=== PATIENT | female | born 1980 | race Caucasian/White ===

== ENCOUNTER 2019-03-23 22:02 | Emergency (ER) | payer OTHER ==
[2019-03-23 22:09] VITALS: BP 133/82; PULSE 99; TEMP 98.6; BMI 25.6
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
[2019-03-23] MEDS ORDERED: AMOX TR/POT CLAV 875MG/125MG TABLETS (FP) PO ONE (22:14)
[2019-03-23] MEDS ORDERED: AMOX TR/POT CLAV 875MG/125MG TABLETS (FP) ONE (22:18)
== END 2019-03-23 22:26 | disposition home or self-care (01) ==
LOC: FER 22:02
DX: K08.89 Other specified disorders of teeth and supporting structures (principal); F17.210 Nicotine dependence, cigarettes, uncomplicated
CPT/HCPCS: 99282-25

== ENCOUNTER 2023-03-19 21:01 | Emergency (ER) | payer OTHER ==
[2023-03-19 21:18] VITALS: RESP 16; BMI 26.2
[2023-03-19] MEDS ORDERED: KETOROLAC TROMETHAMINE 60 MG/2 ML VIAL IM ONE (21:58)
[2023-03-19] MEDS ORDERED: KETOROLAC TROMETHAMINE 30 MG/1 ML VIAL ONE (22:01)
[2023-03-19 22:07] VITALS: BP 118/83; PULSE 84; TEMP 98.7
== END 2023-03-19 22:09 | disposition home or self-care (01) ==
LOC: FER 21:01
PROC: 3E0233Z Introduction of Anti-inflammatory into Muscle, Percutaneous Approach (ICD-10-PCS; principal; 2023-03-19)
DX: L55.9 Sunburn, unspecified (principal); L53.9 Erythematous condition, unspecified
CPT/HCPCS: 99284-25